=== PATIENT | male | born 1940 | race Caucasian/White ===

== ENCOUNTER 2021-04-20 12:08 | Day surgery (SDC) | payer OTHER ==
[~2021-04-20] VITALS: Ht 170.2 cm; Wt 55.8 kg
[2021-04-20 13:30] VITALS: BP 134/65
[2021-04-20 13:43] LABS: BASOPHILS # (AUTO) 0.1 X10'3 (0-0.2); BASOPHILS % (AUTO) 1.5 % (0-1); EOSINOPHILS % (AUTO) 0.9 % (0-6); HEMOGLOBIN 14.2 g/dl (14.0-17.9); LYMPHOCYTES # (AUTO) 0.9 X10'3 (1.1-4.8); LYMPHOCYTES % (AUTO) 20.8 % (21-51); MEAN CORPUSCULAR HEMOGLOBIN 32.6 PG (27.0-31.0); MEAN CORPUSCULAR HGB CONC 33.1 g/dL (33.0-36.5); MEAN CORPUSCULAR VOLUME 98.7 FL (78-98); MEAN PLATELET VOLUME 7.2 FL (7.4-10.4); MONOCYTES # (AUTO) 0.3 X10'3 (0-0.9); MONOCYTES % (AUTO) 6.8 % (2-12); NEUTROPHILS # (AUTO) 3.1 X10'3 (1.8-7.7); PLATELET COUNT 263 X10'3 (140-440); RED BLOOD COUNT 4.35 X10'6 (4.70-6.10); RED CELL DISTRIBUTION WIDTH 21.2 % (11.5-14.5); WHITE BLOOD COUNT 4.4 X10'3 (4.5-11.0)
[2021-04-20 14:14] LABS: ANISOCYTOSIS 3+; PLATELET ESTIMATE NORMAL
[2021-04-20] MEDS ORDERED: LIDOcaine 1%/PF 5ML 10 MG/ML VIAL ONE (14:46)
[2021-04-20] MEDS ORDERED: ENOX100S3 SQ (14:56)
[2021-04-20] MEDS ORDERED: MULT-215 PO (14:56)
[2021-04-20] MEDS ORDERED: POTA20TA19 PO (14:56)
[2021-04-20] MEDS ORDERED: AMLO5TAB PO (14:56)
[2021-04-20] MEDS ORDERED: TRAM50TA2 PO (14:56)
[2021-04-20] MEDS ORDERED: [UNRECOGNIZED DRUG - OTHER] (14:56)
[2021-04-20] MEDS ORDERED: FURO-149 PO (14:56)
[2021-04-20] MEDS ORDERED: ACET325T55 PO (14:56)
[2021-04-20] MEDS ORDERED: BISA-155 PO (14:56)
[2021-04-20] MEDS ORDERED: PANT-47 PO (14:56)
[2021-04-20] MEDS ORDERED: ONDA8TAB65 PO (14:56)
[2021-04-20] MEDS ORDERED: ALBU8HFA PO (14:56)
[2021-04-20] MEDS ORDERED: CITRATE OF MAG (14:56)
[2021-04-20] MEDS ORDERED: mometasone furoate (14:56)
[2021-04-20] MEDS ORDERED: fentaNYL/PF 50MCG/1 ML 2ML syringe ONE (15:01)
[2021-04-20] MEDS ORDERED: midazolam 1 mg/ML 2ml injection ONE (15:01)
[2021-04-20] MEDS ORDERED: iohexol 300 MG/1 ML 50ml polymer ONE (15:01)
[2021-04-20 15:34] VITALS: BP 124/75
[2021-04-20 15:45] VITALS: BP 117/52
[2021-04-20 16:00] VITALS: BP 110/47
[2021-04-20 16:16] VITALS: BP 118/48
== END 2021-04-20 16:45 | disposition home or self-care (01) ==
LOC: SSTAY O 12:08
PROVIDERS: ATTEND Radiology Vascular & Interventional Radiology
DX: Z43.1 Encounter for attention to gastrostomy (principal); Z79.01 Long term (current) use of anticoagulants; Z79.899 Other long term (current) drug therapy; Z88.1 Allergy status to other antibiotic agents
CPT/HCPCS: 36415; 49450; 85025; 85610; 99152; C1769; J2250; J3010; Q9967; 85008; B4087

== ENCOUNTER 2021-06-23 06:05 | Day surgery (SDC) | payer OTHER ==
[~2021-06-23] VITALS: Ht 170.2 cm; Wt 55.2 kg
[~2021-06-23 06:05] MED LIST: ACET325T55 PO; ALBU8HFA PO; AMLO5TAB PO; BISA-155 PO; CITRATE OF MAG; ENOX100S3 SQ; FURO-149 PO; MULT-215 PO; ONDA-104 PO; PANT-47 PO; POTA-207 PO; TRAM50TA2 PO; [UNRECOGNIZED DRUG - OTHER]; mometasone furoate
[2021-06-23 06:15] VITALS: BP 110/59
[2021-06-23] MEDS ORDERED: normal saline 1000ml 1,000 ML IV PRN (06:30)
[2021-06-23] MEDS ORDERED: albumin 25% 100mL bottle x 1 IV PRN (06:30)
[2021-06-23] MEDS ORDERED: BENZ-38 PO (07:00)
[2021-06-23] MEDS ORDERED: FERROUS GLUCONATE PO (07:00)
[2021-06-23] MEDS ORDERED: FLO0.4C PO (07:00)
[2021-06-23] MEDS ORDERED: LIDOcaine 1% 30ml preserv. free vial SQ STA (07:32)
--- NOTE | 2021-06-23 08:20 | NUR ---
DEMETRIUS Fields at bedside, procedure cancelled.
== END 2021-06-23 08:30 | disposition home or self-care (01) ==
LOC: SSTAY O 06:05
PROVIDERS: ATTEND Radiology Vascular & Interventional Radiology
DX: R18.8 Other ascites (principal); Z53.8 Procedure and treatment not carried out for other reasons; R14.0 Abdominal distension (gaseous); K21.9 Gastro-esophageal reflux disease without esophagitis; Z86.718 Personal history of other venous thrombosis and embolism; Z86.711 Personal history of pulmonary embolism; Z98.890 Other specified postprocedural states; Z79.899 Other long term (current) drug therapy; Z88.1 Allergy status to other antibiotic agents; Z85.068 Personal history of other malignant neoplasm of small intestine
CPT/HCPCS: 76705